=== PATIENT | female | born 1970 | race Caucasian/White ===

== ENCOUNTER 2025-02-15 15:34 | Emergency (ER) | payer OTHER, SELFPAY ==
[2025-02-15 15:45] VITALS: BP 102/75; PULSE 100; TEMP 36.8; O2SAT 96; BMI 27.3
--- NOTE | 2025-02-15 16:15 | XR_ITS ---
[facility] [place] [id number] Patient Name: EVAN CROCKER MRN: [id number] date: 1970 Sex: F Assigned Patient Location: ED.MAIN Current Patient Location: ED.MAIN Accession/Order Number: [id number] Exam Date: 02/15/2025 16:10 Report Date: 02/15/2025 16:38 At the request of: PRITI FARRAR DO Procedure: XR ankle LT min 3V 3 views left ankle plain film COMPARISON: None HISTORY: Twisted left ankle walking. Fell. ACUTE FINDINGS: Fracture tip of the lateral malleolus with mild distraction. DEGENERATIVE CHANGE: Calcaneal spurring SOFT TISSUE FINDINGS: Lateral soft tissue swelling. JOINT EFFUSION: None POSTOP CHANGES: None BONE MINERALIZATION: Adequate XR/XR ankle LT min 3V IMPRESSION: Fracture tip of the lateral malleolus. Soft tissue swelling. Impression dictated by: Frank Denny M.D. 02/15/2025 4:38 PM Dictation Location: [place] [address] Electronically authenticated by: [id number] Y Date: 02/15/2025 16:38
--- NOTE | 2025-02-15 18:03 | ED_ITS ---
HPI HPI - General Adult General Chief complaint: Extremity Injury, Lower Stated complaint: WALKING IN [place], FELL IN HOLE, HURT LEFT ANKLE Time Seen by Provider: 02/15/25 15:42 Source: patient Mode of arrival: Wheelchair History of Present Illness HPI narrative: Patient is a 54-year-old female presenting to the emergency department for evaluation of a left ankle injury. Patient was walking [place] the [place] today when she tripped and some loose brush and rolled her left ankle. Other than pain on the lateral aspect of the left ankle, she denies any other injuries. She did not hit her head or lose consciousness. She did not become lightheaded or dizzy before the fall. No chest pain or shortness of breath. She is not on blood thinners. Related Data Home Medications ?Medication ?Instructions ?Recorded ?Confirmed fluticasone propionate 50 2 spray intranasal DAILY PRN nasal 02/15/25 02/15/25 mcg/actuation nasal congestion spray,suspension (24 Hour Allergy Relief) levocetirizine 5 mg tablet (Xyzal) 5 mg PO DAILY 02/1502/15/25 lisinopril 5 mg tablet 5 mg PO DAILY 02/15/2502/15 omeprazole 20 mg capsule,delayed 20 mg PO DAILY 02/15/25 release Allergies Allergy/AdvReac Type Severity Reaction Status Date / Time aspirin Allergy swelling Verified 02/15/25 15:43 Review of Systems ROS Status of ROS 10 or more systems reviewed and unremark able except as noted in history and below PFSH PFSH Social History Little interest or pleasure in doing things: not at all Feeling down, depressed, or hopeless: not at all Exam Narrative Exam Narrative: CONSTITUTIONAL: Well-appearing, answering questions and following commands appropriately SKIN: Was warm and dry. EYES: Sclerae white. EARS, NOSE, THROAT: Moist oral mucosa. RESPIRATORY: Nonlabored respirations. CARDIOVASCULAR: Normal rate and regular rhythm. 2+ DP pulse on the left. Foot is warm and well-perfused. GASTROINTESTINAL: Abdomen is nondistended. MUSCULOSKELETAL: There is soft tissue swelling and tenderness to palpation over the left lateral malleolus. She has good range of motion throughout the left foot/ankle. No tenderness throughout the tibia, fibula, knee, or foot. Compartment soft and compressible. NEUROLOGIC: Patient is awake and alert. Good strength and sensation light touch of the left foot/ankle. Constitutional Vital Signs, click to edit/add: Last Vital Signs Temp 98.2 F 02/15/25 15:45 Pulse 100 H 02/15/25 15:45 Resp 18 02/15/25 15:45 BP 102/75 02/15/25 15:45 Pulse Ox 96 02/15/25 15:45 O2 Del Method Room Air 02/15/25 15:45 Course Vital Signs Vital signs: Vital Signs Temperature 98.2 F 02/15/25 15:45 Pulse Rate 100 H 02/15/25 15:45 Respiratory Rate 18 02/15/25 15:45 Blood Pressure 102/75 02/15/25 15:45 Pulse Oximetry 96 02/15/25 15:45 Oxygen Delivery Method Room Air 02/15/25 15:45 Temperature 98.2 F 02/15/25 15:45 Pulse Rate 100 H 02/15/25 15:45 Respiratory Rate 18 02/15/25 15:45 Blood Pressure 102/75 02/15/25 15:45 Pulse Oximetry 96 02/15/25 15:45 Oxygen Delivery Method Room Air 02/15/25 15:45 Medical Decision Making [facility] Narrative Medical decision making narrative: Patient is a 54-year-old female presenting to the emergency department for evaluation of left ankle injury from a mechanical fall earlier today. Vital signs arrival are within normal limits. She is afebrile and hemodynamically stable. Examination as noted above. The foot is warm and well-perfused and neurovascularly intact. She has tenderness to palpation and soft tissue swelling over the left lateral malleoli. Differential diagnose includes ankle sprain, ATFL sprain, fibular fracture. X- rays were obtained. She declined analgesics. X-rays of the left ankle independently reviewed and interpreted by myself and radiology demonstrate fracture at the tip of the distal left tibia. At this time, the patient was placed in a CAM walking boot and given crutches. She was told to be nonweightbearing until she can follow-up with orthopedic surgery in 1 week. Return precautions were given including any new or worsening symptoms. Patient understands and agrees to the plan. FINAL IMPRESSION: #Acute left distal fibular fracture DISPOSITION: Discharged home CONDITION: Good Imaging Data left ankle xray: Attestation: I personally reviewed and interpreted this imaging study as follows: Radiologist's impression: ITS Impressions Ankle X-Ray 02/15/25 16:15 IMPRESSION: Fracture tip of the lateral malleolus. Soft tissue swelling. Impression dictated by: Frank Denny M.D. 02/15/2025 4:38 PM [facility] Electron[facility] authenticated by: [id number] Y Date: 02/15/2025 16:38 Discharge Plan Discharge Chief Complaint: Extremity Injury, Lower Clinical Impression: Avulsion fracture of distal end of fibula Patient Disposition: Home, Self-Care Condition: Good Prescriptions / Home Meds: No Action omeprazole 20 mg capsule,delayed release(DR/EC) 20 mg PO DAILY lisinopril 5 mg tablet 5 mg PO DAILY fluticasone propionate [24 Hour Allergy Relief] 50 mcg/actuation spray,suspension 2 spray intranasal DAILY PRN (Reason: nasal congestion) Rx Instructions: administer into each nostril levocetirizine [Xyzal] 5 mg tablet 5 mg PO DAILY Print Language: [place] Islander Instructions: Leg Fracture (ED) Referrals: Physician,Non-Staff, MD [Primary Care Provider] - 1 week Discharge Date/Time: 02/15/25 17:32
== END 2025-02-15 17:32 | disposition home or self-care (01) ==
PROVIDERS: Emergency Provider Student in an Organized Health Care Education/Training Program
DX: S82.65XA Nondisplaced fracture of lateral malleolus of left fibula, initial encounter for closed fracture (principal); X50.1XXA Overexertion from prolonged static or awkward postures, initial encounter; Y93.01 Activity, walking, marching and hiking
CPT/HCPCS: 73610; 99283